=== PATIENT | female | born 1970 | race Caucasian/White ===

== ENCOUNTER → 2023-03-17 12:48 | Outpatient (CLI) | payer BC, SELFPAY ==
[2023-03-17 17:57] LABS: Hemoglobin A1C 5.7 % (4.0-6.0)
== END ==
PROVIDERS: PCP Internal Medicine Adolescent Medicine; Visit Provider Internal Medicine Adolescent Medicine
DX: Z86.39 Personal history of other endocrine, nutritional and metabolic disease (principal)
CPT/HCPCS: 36415; 83036

== ENCOUNTER 2024-01-04 10:00 | Outpatient (RCR) | payer BC, SELFPAY ==
--- NOTE | 2023-10-27 10:50 | HMH.PTOPWND ---
Rehab Outpt Wound Evaluation Rehab OP Wound Evaluation Start: 10/27/23 07:58 Freq: Status: Active Protocol: Document 10/27/23 10:33 KIM (Rec: 10/27/23 10:49 PHORSTANLEY [id number]) E-signed By Forrest Payne, PT Subjective/History History History This is the initial PT eval for Temitope Rodrigues, 53 yowf who presents with c/o B LE edema, L worse than R, x ~ 10-12 yrs overall and gradually worse. She Reports he edema does not decrease with elevation of her legs. She also reports no c/o pain, they just feel heavy. She has hx of HTN, sleep apnea, and remote hx of B inguinal hernia repair as an . She reports no tenderness to palpation and no numbness or tingling noted. Subjective Subjective Pain currently 0/10, 0/4 TTP to B LE. Minimal B lower leg blanchable erythema. No pitting edema noted. Mild/ Moderate fibrotic edema to B lower legs. New diagnosis of cancer in past 12 No months? Lymphedema Eval Classification of Lymphedema Secondary Lymphedema Yes Stemmer's sign Stemmer's Sign yes Stage of Lymphedema Lymphedema stages Stage II (Pitting edema, increased fibrosis w/ decreased pitting) Skin Changes Dry Skin Yes Taut, Shiny Skin Yes Skin Folds Yes Redness Yes: blanchable Discoloration of Skin Yes Other Changes Yes Pain Scale Pain Scale (0-10) 0 Affected Extremities Areas Affected by Lymphedema/Edema Right Lower Extremity,Left Lower Extremity Lower Extremity Measurements Right MTP Measurement (cm) 23.3 Heel Measurement (cm) 33.4 10 cm Proximal to Lateral Malleoli 37.8 Measurement (cm) 20 cm Proximal to Lateral Malleoli 45.8 Measurement (cm) 30 cm Proximal to Lateral Malleoli 52.2 Measurement (cm) 40 cm Proximal to Lateral Malleoli 0 Measurement (cm) 50 cm Proximal to Lateral Malleoli 0 Measurement (cm) 60 cm Proximal to Lateral Malleoli 0 Measurement (cm) Lower Extremity Measurement Total (cm) 192.5 Left MTP Measurement (cm) 23.8 Heel Measurement (cm) 33.5 10 cm Proximal to Lateral Malleoli 36.5 Measurement (cm) 20 cm Proximal to Lateral Malleoli 49.6 Measurement (cm) 30 cm Proximal to Lateral Malleoli 53.0 Measurement (cm) 40 cm Proximal to Lateral Malleoli 0 Measurement (cm) 50 cm Proximal to Lateral Malleoli 0 Measurement (cm) 60 cm Proximal to Lateral Malleoli 0 Measurement (cm) Lower Extremity Measurement Total (cm) 196.4 Manual Lymphatic Drainage Treatment Area MLD Treatment Area Right Lower Extremity,Left Lower Extremity Wound Problems/Impairments Impairments Problems/Impairmments Impaired Work Activities, Increased Edema,Lymphedema Present,Impaired Self Care/ Self Management Prognosis Rehab Potential Good Comment Skilled therapy is needed to reduce overall lymphedema to B LE and aid pt return to prior level of function. Clinical Impression Consistent with Diagnosis Yes Short Term Goals Number of Weeks 2 Decrease Lymphedema Yes: Minimal fibrotic edema B LE Patient to Understand Lymphedema Yes Treatment and Exercises Decrease Girth Measurments by (cm) Yes: L LE total by 5 cm Hand Flesher Goals Number of Weeks 4 Decrease Lymphedema Yes: No fibrotic edema B LE Patient to be Ind w/ HEP Yes Patient to be Ind w/ Donning/Wilkinson Yes Compression Garments Patient to Adhere Lymphedema Precautions Yes Decrease Girth Measurments by (cm) Yes: B LE total by 15 cm ea Outpatient Therapy Plan of Care Treatment Plan May Include Therapeutic Exercise Including Home Yes Exercise Program Manual Therapy Techniques Yes Neuromuscular Re-education Yes Therapeutic Activities to Return to Yes Previous Functional/Work Level ADL/Self Care Education Yes Orthotics/Bracing/Splinting Yes Vasopneumatic Compression Pump Yes Manual Lymphatic Drainage Yes Eval/Re-Eval Yes Frequency Times per week 2 Duration Number of Weeks 4 Addendums This patient is a candidate for social No or vocational rehab? Patient/Guardian verbally acknowledges Yes understanding of treatment program and consents to further treatment? Patient/Guardian verbally acknowledges Yes understanding of diagnosis, prognosis and goals for treatment? Eval Complexity PT Charges 25648 - High Complexity PHYSICIAN CERTIFICATION: I certify the specified therapy services for Temitope Rodrigues are required, authorized, and reviewed every 30 days.
--- NOTE | 2023-11-26 15:59 | HMH.RHREAS ---
Rehab Reassessment Rehab OP Re-assessment Start: 10/27/23 07:58 Freq: Status: Active Protocol: Document 11/26/23 15:55 [email or web address] (Rec: 11/26/23 15:58 KIM [id number]) E-signed By Forrest Payne, PT Rehab Re-assessment Subjective Subjective Pt reports no pain in B LE, remains 0/10. She does state, I feel like my legs are not as swollen and they are going in the right direction. Objective Objective Notes Circumferential Measurements: R LE total is 184.2 cm which is -8.3 cm since IE L LE total is 186.9 cm which is -9.5 cm since IE. Pain: 0/10 TTP: 0/4 Assessment Progress Assessment Progressing as Expected Assessment Notes Pt has shown significant reduction in B LE edema overall and is tolerating compression garments well. She continues to need skilled therapy to reduce further edema and return to PLOF. Patient goals met ST/3 LT/5 Plan Plan Continue with initial POC. Frequency of Therapy 2 x/wk Duration of therapy 4 wks Time and Billing Re-Eval Time 12 Re-Eval Billing Units 1 PHYSICIAN CERTIFICATION: I certify the specified therapy services for Temitope Rodrigues are required, authorized, and reviewed every 30 days.
--- NOTE | 2023-12-30 14:28 | HMH.RHREAS ---
Rehab Reassessment Rehab OP Re-assessment Start: 10/27/23 07:58 Freq: Status: Active Protocol: Document 12/30/23 14:23 CHARLEENSTANLEY (Rec: 12/30/23 14:28 PHOANI [id number]) E-signed By Forrest Payne, PT Rehab Re-assessment Subjective Subjective Pt reports she feels much better with her swelling in B LE. She mentioned she received a cortisone injection in the R knee this week which significantly helped her R knee pain, unrelated to her edema. Objective Objective Notes Circumferential Measurements: R LE total is 176.9 cm which is -15.8 cm since IE L LE total is 178.2 cm which is -18.2 cm since IE. Pain: 0/10 TTP: 0/4 Assessment Progress Assessment Progressing as Expected Assessment Notes Pt has shown significant reduction in B LE edema overall and is tolerating compression garments well. She continues to need skilled therapy to reduce further edema and return to PLOF. Patient goals met ST/3 LT/5 Plan Plan Continue with initial POC. Frequency of Therapy 2 x/wk Duration of therapy 4 wks Time and Billing Re-Eval Time 11 Re-Eval Billing Units 1 PHYSICIAN CERTIFICATION: I certify the specified therapy services for Temitope Rodrigues are required, authorized, and reviewed every 30 days.
== END 2024-01-04 10:05 | disposition home or self-care (01) ==
LOC: PT 10:00
PROVIDERS: Visit Provider Internal Medicine Adolescent Medicine
DX: I89.0 Lymphedema, not elsewhere classified (principal)
CPT/HCPCS: 97140; 97163; 97164